=== PATIENT | female | born 1965 | race Hispanic/Latino ===

== ENCOUNTER 2019-03-14 07:30 | Inpatient (IN) | payer BC ==
[2019-03-14 08:07] LABS: Basophils # (Auto) 0.1 K/mm3 (0.0-0.1); Basophils % (Auto) 1.4 % (0.0-1.8); Eosinophils # (Auto) 0.1 K/mm3 (0.0-0.4); Eosinophils % (Auto) 2.1 % (0.0-4.3); Hematocrit 33.5 % (30.3-42.9); Lymphocytes # (Auto) 1.3 K/mm3 (1.2-5.4); Lymphocytes % (Auto) 21.1 % (13.4-35.0); Mean Corpuscular HGB Conc 33 % (30-34); Mean Corpuscular Volume 73 fl (79-97); Monocytes # (Auto) 0.4 K/mm3 (0.0-0.8); Monocytes % (Auto) 5.9 % (0.0-7.3); Platelet Count 182 K/mm3 (140-440); Red Blood Count 4.57 M/mm3 (3.65-5.03)
[2019-03-14 08:11] LABS: Red Cell Distribution Width 20.5 % (13.2-15.2)
[2019-03-14 08:15] LABS: INR 0.9 (0.87-1.13); Partial Thromboplastin Time 25.5 Sec. (24.2-36.6)
[2019-03-14 08:17] LABS: BUN/Creatinine Ratio 19; Blood Urea Nitrogen 13 mg/dL (7-17); Hemolysis Index 1
[2019-03-14] MEDS: NACL 0.9% 500 ML 500 ML IV SCH ×2 (08:23→11:15)
--- NOTE | 2019-03-14 10:41 | Short Stay Summary ---
Short Stay Documentation Date of service: 03/14/19 - History Principal diagnosis: Right staghorn Calculus Past Medical History: other (Right staghorn Calculus) Social history: no significant social history - Allergies and Medications Current Medications: Allergies No Known Allergies Allergy (Unverified 12/08/14 16:47) Home Medications Medication Instructions Recorded Confirmed Last Taken Type Ibuprofen [Motrin 800 MG tab] 800 mg PO Q8H PRN #30 tablet 02/02/16 03/14/19 03/08/19 Rx 800mg rifAMPin [Rifadin] 2 cap PO DAILY 03/14/19 03/14/19 03/13/19 History 2 tab Active Medications Sodium Chloride (Nacl 0.9% 500 Ml) 500 mls @ 50 mls/hr IV DIRECT WALT Last Admin: 03/14/19 08:23 Dose: 50 mls/hr Documented by: - Physical exam General appearance: no acute distress Integumentary: no rash, no growths HEENT: Atraumatic Lungs: Normal air movement Breasts: deferred Heart: Regular rate Gastrointestinal: normal Female Genitourinary: deferred Rectal Exam: deferred Extremities: Full ROM Neurological: Normal gait, Normal speech - Brief post op/procedure progress note Date of procedure: 03/14/19 Pre-op diagnosis: right staghorn calculus Post-op diagnosis: same Procedure: Ultrasound and fluoroscopic guided placement of right Nephro-ureteral stent Anesthesia: local Surgeon: LENIN ARVIZU Estimated blood loss: minimal Pathology: none Condition: stable - Disposition Condition at discharge: Good Disposition: DC/TX-02 [id number]-TRM GEN HOSP IP Short Stay Discharge Plan Activity: advance as tolerated Weight Bearing Status: Weight Bear as Tolerated Diet: regular Wound: keep clean and dry, per your surgeon's advice Follow up with: MUMTAZ ROCHA MD [Primary Care Provider] - 7 Days
[2019-03-14] MEDS ORDERED: SUBLIMAZE ONE (10:59)
[2019-03-14] MEDS ORDERED: VERSED ONE (10:59)
[2019-03-14] MEDS ORDERED: NACL 0.9% 500 ML IR ONE (11:00)
[2019-03-14] MEDS ORDERED: LEVAQUIN 500MG/100ML 500 MG/100 ML BAG IV ONE (11:00)
[2019-03-14] MEDS ORDERED: XYLOCAINE 2% INFILTRATI ONE (11:00)
--- NOTE | 2019-03-14 11:40 | Operative Report ---
Operative Report Operative Report: Exam: Ultrasound and fluoroscopic guided placement of right nephroureteral stent Clinical indication: Patient with a history of staghorn calculus involving the right kidney Date: 03/14/2019 Procedure: Following an explanation of the risks, benefits and alternatives; written informed consent was obtained. The patient was brought to the angiographic suite and placed in prone position on the examination table. Initial ultrasound and orthotopic images demonstrated staghorn calculus filling all calyces and the renal pelvis. The posterior middle calyx was chosen for access. Under ultrasound and fluoroscopic guidance, the posterior middle calyx was cannulated with a 15 cm 21-gauge needle. A 0.018 guidewire was manipulated past the calculus into the proximal ureter. The needle was exchanged for an Accustick transition dilator which was advanced into the proximal ureter. The 0.018 guidewire was exchanged for a 0.035 guidewire which was advanced to the urinary bladder. The transition dilator was removed. A 5 [place] 90 cm pigtail catheter was then advanced over the guidewire to position the pigtail within the renal pelvis. Guidewire was removed. Contrast was injected to document positioning within the bladder. The catheter was then coiled and securely fastened to the skin surface using 2-0 Ethilon suture and sterile dressings applied. The patient tolerated the procedure well. There were no immediate postprocedure complications. Conscious sedation was performed under the guidance of radiologic nursing. Continuous cardiopulmonary monitoring was utilized. Impression: Ultrasound and fluoroscopic guided placement of a right nephroureteral stent to provide access for laser lithotripsy.
[2019-03-14] MEDS ORDERED: NORCO 5/325 PO ONE (12:00)
[2019-03-14] MEDS ORDERED: NORCO 5/325 ONE (12:00)
[2019-03-14] MEDS ORDERED: MORPHINE IV ONE (13:00)
--- NOTE | 2019-03-14 13:32 | Cat Scan Report ---
PROCEDURE: CT ABDOMEN PELVIS WO CON TECHNIQUE: CT examination of the abdomen without IV contrast CT examination of the pelvis without IV contrast HISTORY: right staghorn calculi COMPARISONS: Lumbar spine radiographs 08/11/2018 FINDINGS: No acute lung base finding. Degenerative change in the regional skeleton. No acute fracture. Normal cardiac size. Slight coronary artery calcification posteriorly. A smoothly marginated hypodense left hepatic lobe lesion is nonspecific and statistically most likely reflects a cyst or hemangioma. Normal-appearing gallbladder, adrenals, pancreas, and spleen. Normal caliber abdominal aorta with mod erate calcified atherosclerotic plaque. Normal caliber IVC. Nonspecific, smoothly marginated, simple appearing, low density bilateral renal lesions are statistic ally most likely cysts. Otherwise normal-appearing left kidney and left ureter. No left hydronephrosi s. Moderate to severe right hydronephrotic renal collecting system again contains a large staghorn calcu alysa involving nearly all calyces and the right renal pelvis extending nearly to the right UPJ. No demarcus dence of right ureteral calculus or distention. Although the staghorn calculus is lobulated and diffi cult to measure, approximate transverse measurements are 3.9 x 4.8 cm. Approximate sagittal dimension on coronal images is 9.4 cm. Small fat-containing umbilical hernia. No inguinal hernia. No retroperitoneal adenopathy. No evidence of mesenteric mass. Normal-appearing stomach and duodenum. No small bowel distention in the abdomen and pelvis. No pelvic free fluid. Normal-appearing urinary bladder, uterus, and right adnexa. Normal-appearing re ctum and sigmoid colon. No gross ascites, free air, or colonic distention. Normal-appearing cecum and terminal ileum. Appendix not visualized. No pericecal inflammation. Nonspecific small smoothly marginated cyst in left adnexa may be a dominant ovarian follicle. It coul d be a small follicular cyst measuring 2.5 cm. IMPRESSION: Large right staghorn calculus as above described Slight coronary artery calcification Small fat-containing umbilical hernia 2.5 cm simple appearing cyst in left adnexa may be a dominant ovarian follicle or small follicular cy st This document is electronically signed by Miller Espinosa MD., March 14 2019 01:30:16 PM ET
[2019-03-14] MEDS ORDERED: NORCO 5/325 PO PRN (14:42)
[2019-03-14] MEDS ORDERED: TYLENOL PO PRN (14:42)
[2019-03-14] MEDS ORDERED: SODIUM CHLORIDE FLUSH SYRINGE 10 ML IV PRN (14:42)
[2019-03-14] MEDS ORDERED: ZOFRAN IV PRN (14:42)
[2019-03-14] MEDS ORDERED: DULCOLAX PR PRN (14:42)
--- NOTE | 2019-03-14 14:42 | History and Physical Report ---
History of Present Illness Date of examination: 03/14/19 Date of admission: 03/14/19 13:58 Past History Past Medical History: other (Right staghorn Calculus) Social history: no significant social history Medications and Allergies Allergies Allergy/AdvReac Type Severity Reaction Status Date / Time No Known Allergies Allergy Unverified 12/08/14 16:47 Home Medications Medication Instructions Recorded Confirmed Last Taken Type Ibuprofen [Motrin 800 MG tab] 800 mg PO Q8H PRN #30 tablet 02/02/16 03/14/19 03/08/19 Rx 800mg rifAMPin [Rifadin] 2 cap PO DAILY 03/14/19 03/14/19 03/13/19 History 2 tab Active Meds: Active Medications Sodium Chloride (Nacl 0.9% 500 Ml) 500 mls @ 50 mls/hr IV DIRECT WALT Last Admin: 03/14/19 11:15 Dose: 50 mls/hr Documented by: Exam - Constitutional Vitals: Temp Pulse Resp BP Pulse Ox 98.6 F 81 18 133/58 96 03/14/19 11:45 03/14/19 14:00 03/14/19 14:00 03/14/19 14:00 03/14/19 14:00 Results - Labs CBC & Chem 7: 03/14/19 07:45 03/14/19 07:45 Labs: Laboratory Last Values WBC 6.3 K/mm3 (4.5-11.0) 03/14/19 07:45 RBC 4.57 M/mm3 (3.65-5.03) 03/14/19 07:45 Hgb 11.0 gm/dl (10.1-14.3) 03/14/19 07:45 Hct 33.5 % (30.3-42.9) 03/14/19 07:45 MCV 73 fl (79-97) L 03/14/19 07:45 MCH 24 pg (28-32) L 03/14/19 07:45 MCHC 33 % (30-34) 03/14/19 07:45 RDW 20.5 % (13.2-15.2) H 03/14/19 07:45 Plt Count 182 K/mm3 (140-440) 03/14/19 07:45 Lymph % (Auto) 21.1 % (13.4-35.0) 03/14/19 07:45 [place] % (Auto) 5.9 % (0.0-7.3) 03/14/19 07:45 Eos % (Auto) 2.1 % (0.0-4.3) 03/14/19 07:45 Baso % (Auto) 1.4 % (0.0-1.8) 03/14/19 07:45 Lymph # 1.3 K/mm3 (1.2-5.4) 03/14/19 07:45 [place] # 0.4 K/mm3 (0.0-0.8) 03/14/19 07:45 Eos # 0.1 K/mm3 (0.0-0.4) 03/14/19 07:45 Baso # 0.1 K/mm3 (0.0-0.1) 03/14/19 07:45 Seg Neutrophils % 69.5 % (40.0-70.0) 03/14/19 07:45 Seg Neutrophils # 4.4 K/mm3 (1.8-7.7) 03/14/19 07:45 PT 12.7 Sec. (12.2-14.9) 03/14/19 07:45 INR 0.90 (0.87-1.13) 03/14/19 07:45 APTT 25.5 Sec. (24.2-36.6) 03/14/19 07:45 Sodium 138 mmol/L (137-145) 03/14/19 07:45 Potassium 4.1 mmol/L (3.6-5.0) 03/14/19 07:45 Chloride 104.0 mmol/L (98-107) 03/14/19 07:45 Carbon Dioxide 23 mmol/L (22-30) 03/14/19 07:45 15 mmol/L 03/14/19 07:45 BUN 13 mg/dL (7-17) 03/14/19 07:45 0.7 mg/dL (0.7-1.2) 03/14/19 07:45 Estimated GFR > 60 ml/min 03/14/19 07:45 19 % 03/14/19 07:45 Glucose 107 mg/dL (65-100) H 03/14/19 07:45 Calcium 9.0 mg/dL (8.4-10.2) 03/14/19 07:45
[2019-03-14] MEDS: DILAUDID IV PRN ×3 (15:12→22:21)
[2019-03-14 15:39] LABS: Alanine Aminotransferase 12 units/L (7-56); Albumin 3.7 g/dL (3.9-5); BUN/Creatinine Ratio 17; Blood Urea Nitrogen 12 mg/dL (7-17); Calcium 8.7 mg/dL (8.4-10.2); Hemolysis Index 2
[2019-03-14 15:45] LABS: Basophils % (Auto) 0.4 % (0.0-1.8); Eosinophils # (Auto) 0.1 K/mm3 (0.0-0.4); Hematocrit 33.2 % (30.3-42.9); Hemoglobin 10.7 gm/dl (10.1-14.3); Lymphocytes # (Auto) 0.9 K/mm3 (1.2-5.4); Lymphocytes % (Auto) 11.2 % (13.4-35.0); Mean Corpuscular HGB Conc 32 % (30-34); Mean Corpuscular Volume 74 fl (79-97); Monocytes # (Auto) 0.4 K/mm3 (0.0-0.8); Monocytes % (Auto) 4.4 % (0.0-7.3); Platelet Count 184 K/mm3 (140-440); Red Blood Count 4.51 M/mm3 (3.65-5.03)
[2019-03-14 15:46] LABS: Red Cell Distribution Width 20.7 % (13.2-15.2)
[2019-03-14] MEDS: PEPCID PO SCH ×2 (16:19→22:05)
[2019-03-14] MEDS ORDERED: AMBIEN PO PRN (22:00)
[2019-03-14] MEDS: ROCEPHIN/NS 2 GM/100 ML 2 GM/100 ML BAG IV SCH (22:05)
[2019-03-15] MEDS: DILAUDID IV PRN ×5 (04:07→23:57)
[2019-03-15] MEDS: NACL 0.9% 1000 ML 1,000 ML IV SCH (04:08)
--- NOTE | 2019-03-15 07:05 | Event Note ---
Date: 03/14/19 See H/p in reports Staghorm calculus Rt Nephroureteral stent placement Pain control Direct admit
--- NOTE | 2019-03-15 07:28 | History and Physical Report ---
CHIEF COMPLAINT: Right flank pain. HISTORY OF PRESENT ILLNESS: A 53-year-old female with no significant past medical history, admitted for right nephroureteral stent placement and followup for treatment of staghorn calculus. The patient has a large staghorn calculus. The patient had a fluoroscopic-guided placement of right nephroureteral stent and post stent pain control. Also, Urology consult initiated. The patient may be going for a lithotripsy. No fever or chills. PAST MEDICAL HISTORY: Renal calculi. PAST SURGICAL HISTORY: Appendectomy and tubal ligation. FAMILY HISTORY: Hypertension. SOCIAL HISTORY: Does not smoke. No alcohol, no recreational drugs. REVIEW OF SYSTEMS: Other than right flank pain, review of systems is negative. No fever or chills. PHYSICAL EXAMINATION: GENERAL: On examination, middle-aged female lying in bed comfortably. VITAL SIGNS: Blood pressure is 133/58, temperature is 98.3, pulse is 81, respirations 18. HEENT: Unremarkable. Pupils equal and reactive. NECK: Supple, no lymphadenopathy, no thyromegaly. LUNGS: Clear to auscultation and percussion. Good air entry. CARDIOVASCULAR: S1, S2 heard. No gallop, no murmur, no rub. Apical impulse in left fifth intercostal space and midclavicular line. ABDOMEN: Soft and benign. No hepatosplenomegaly, no guarding, no rigidity. Hernial orifices are normal. EXTREMITIES: Good pedal pulses. No pedal edema. CENTRAL NERVOUS SYSTEM: Alert and oriented x 4, nonfocal exam. LABORATORY DATA: CBC is normal with a low MCV of 73. Electrolytes are normal. Glucose is slightly high at 107. Urinalysis pending. ASSESSMENT AND PLAN: 1. Right staghorn calculus. Urology consult requested. The patient may be getting a lithotripsy. We will defer to Urology. 2. Status post nephroureteral stent placement. Pain control. IV fluids. 3. Deep venous thrombosis prophylaxis, Lovenox 40 mg subcutaneous daily. In summary, the patient has a staghorn calculus etiology informed. JOB# [id number] VSMariah/LUZ LUCIO
--- NOTE | 2019-03-15 08:44 | Progress Note ---
Assessment and Plan Patient status post right nephroureteral stent placement. Scheduled for surgery this afternoon. Management per urology. Subjective Date of service: 03/15/19 Principal diagnosis: Right staghorn Calculus Interval history: Patient doing well all replacement of right upper ureteral stent for access for laser lithotripsy. Her pain is greatly decreased today. Awaiting surgery. Objective - Constitutional Vitals: Vital Signs - 12hr 03/14/19 03/15/19 22:22 05:20 Temperature 98.3 F 98.6 F Pulse Rate 93 H 87 Respiratory 18 16 Rate Blood Pressure 133/72 144/83 O2 Sat by Pulse 92 98 Oximetry General appearance: Present: no acute distress - EENT Eyes: EOM intact ENT: hearing intact - Neck Neck: supple - Respiratory Respiratory effort: normal - Breasts Breasts: deferred Extremities: no ischemia - Gastrointestinal General gastrointestinal: Present: deferred - Genitourinary Female genitourinary: deferred - Psychiatric Psychiatric: appropriate mood/affect, cooperative - Labs CBC & Chem 7: 03/14/19 14:58 03/14/19 14:58 Labs: Abnormal lab results 03/14/19 03/14/19 Range/Units 14:58 14:58 MCV 74 L (79-97) fl MCH 24 L (28-32) pg RDW 20.7 H (13.2-15.2) % Lymph % (Auto) 11.2 L (13.4-35.0) % Lymph # 0.9 L (1.2-5.4) K/mm3 Seg Neutrophils % 83.0 H (40.0-70.0) % Glucose 125 H (65-100) mg/dL Albumin 3.7 L (3.9-5) g/dL Medications & Allergies - Medications Allergies/Adverse Reactions: Allergies No Known Allergies Allergy (Unverified 12/08/14 16:47) Home Medications: Home Medications Medication Instructions Recorded Confirmed Last Taken Type Ibuprofen [Motrin 800 MG tab] 800 mg PO Q8H PRN #30 tablet 02/02/16 03/14/19 03/08/19 Rx 800mg rifAMPin [Rifadin] 2 cap PO DAILY 03/14/19 03/14/19 03/13/19 History 2 tab Active Medications: Generic Name Dose Route Start Last Admin Trade Name Freq PRN Reason Stop Dose Admin Acetaminophen 650 mg 03/14/19 14:42 Tylenol PO Q4H PRN Pain MILD(1-3)/Fever >100.5/REAGAN Acetaminophen/Hydrocodone Bitart 2 each 03/14/19 14:42 [place] 5/325 PO Q6H PRN Pain, Moderate (4-6) Bisacodyl 10 mg 03/14/19 14:42 Dulcolax [place] QDAY PRN Constipation unrelieved by MOM Famotidine 20 mg 03/14/19 15:00 03/14/19 22:05 Pepcid PO 20 mg BID WALT Administration Hydromorphone HCl 0.5 mg 03/14/19 14:42 03/15/19 07:52 Dilaudid IV 0.5 mg Q3H PRN Administration Pain , Severe (7-10) Sodium Chloride 1,000 mls @ 100 mls/hr 03/14/19 15:00 03/15/19 04:08 Nacl 0.9% 1000 Ml IV 100 mls/hr DIRECT WALT Administration Ceftriaxone Sodium 2 gm in 100 mls @ 200 mls/hr 03/14/19 21:00 03/14/19 22:05 Rocephin/Ns 2 Gm/100 Ml IV 200 mls/hr Q24HR WALT Administration Protocol Ondansetron HCl 4 mg 03/14/19 14:42 03/14/19 18:58 Zofran IV 4 mg Q8H PRN Administration Nausea And Vomiting Oxycodone/Acetaminophen 1 tab 03/14/19 14:42 Percocet 5/325 PO Q6H PRN Pain, Moderate (4-6) Sodium Chloride 10 ml 03/14/19 22:00 Sodium Chloride Flush Syringe 10 Ml IV BID WALT Sodium Chloride 10 ml 03/14/19 14:42 Sodium Chloride Flush Syringe 10 Ml IV PRN PRN LINE FLUSH Zolpidem Tartrate 5 mg 03/14/19 22:00 03/14/19 22:23 Ambien PO 5 mg QHS PRN Administration Insomnia
[2019-03-15] MEDS: ROCEPHIN/NS 2 GM/100 ML 2 GM/100 ML BAG IV SCH (10:08)
[2019-03-15] MEDS: PEPCID PO SCH ×2 (10:10→22:35)
[2019-03-15] MEDS: SODIUM CHLORIDE FLUSH SYRINGE 10 ML IV SCH ×3 (10:10→22:35)
[2019-03-15] MEDS ORDERED: LACTATED RINGERS 1,000 ML IV SCH (12:00)
[2019-03-15] MEDS ORDERED: VERSED IV NR (12:00)
--- NOTE | 2019-03-15 12:58 | Anesthesia Consultation ---
Anesthesia Consult and Med Hx Date of service: 03/15/19 - Airway Anesthetic Teeth Evaluation: Poor, Chipped ROM Head & Neck: Adequate Mental/Hyoid Distance: Adequate Mallampati Class: Class II Intubation Access Assessment: Good - Pulmonary Exam CTA: Yes - Cardiac Exam Cardiac Exam: RRR - Pre-Operative Health Status ASA Pre-Surgery Classification: ASA2 Proposed Anesthetic Plan: General - Pulmonary Hx Smoking: Yes (half pack a day ) Hx Asthma: No COPD: No Hx Pneumonia: No - Cardiovascular System Hx Hypertension: No - Central Nervous System Hx Psychiatric Problems: No - Gastrointestinal Hx Gastroesophageal Reflux Disease: No - Endocrine Hx End Stage Renal Disease: No - Other Systems Hx Alcohol Use: Yes (1-2 beers daily as per patient) Hx Cancer: No - Additional Comments Anesthesia Medical History Comments: 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 Smoker 1/2 pack daily , poor dentition for GA
--- NOTE | 2019-03-15 12:58 | Anesthesia Day of Surgery ---
Anesthesia Day of Surgery - Day of Surgery Patient Examined: Yes Patient H&P Reviewed: Yes Patient is NPO: Yes
[2019-03-15] MEDS ORDERED: DILAUDID IV PRN (12:59)
[2019-03-15] MEDS ORDERED: ZOFRAN IV PRN (12:59)
[2019-03-15 13:14] LABS: Basophils # (Auto) 0.1 K/mm3 (0.0-0.1); Basophils % (Auto) 0.8 % (0.0-1.8); Eosinophils % (Auto) 0.5 % (0.0-4.3); Hematocrit 33.2 % (30.3-42.9); Hemoglobin 10.6 gm/dl (10.1-14.3); Lymphocytes # (Auto) 0.8 K/mm3 (1.2-5.4); Lymphocytes % (Auto) 9.8 % (13.4-35.0); Mean Corpuscular HGB Conc 32 % (30-34); Mean Corpuscular Volume 74 fl (79-97); Monocytes # (Auto) 0.5 K/mm3 (0.0-0.8); Monocytes % (Auto) 6.1 % (0.0-7.3); Platelet Count 174 K/mm3 (140-440); Red Blood Count 4.49 M/mm3 (3.65-5.03)
[2019-03-15 13:20] LABS: Red Cell Distribution Width 20.6 % (13.2-15.2)
[2019-03-15 14:01] LABS: BUN/Creatinine Ratio 12; Blood Urea Nitrogen 7 mg/dL (7-17); Calcium 8.5 mg/dL (8.4-10.2); Hemolysis Index 8
[2019-03-15] MEDS ORDERED: NACL 0.9% IR ONE (15:27)
--- NOTE | 2019-03-15 15:30 | Progress Note ---
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 Patient has large staghorn calculus and going for lithotripsy today. Patient status post right nephroureteral stent placement. Scheduled for surgery this afternoon. Management per urology. Right staghorn calculus: Urology is following, for lithotripsy today. Status post right nephroureteral stent placement. History Interval history: Patient was seen and examined. Follow-up on current diagnosis of Kidney stones. Overnight uneventful. Patient denies any chest pain, shortness breath, nausea/vomiting or severe headaches. Imaging, nursing note, chart, labs and old chart reviewed. Discussed with patient. Hospitalist Physical - Physical exam Narrative exam: Gen: WDWN, NAD, Awake, Alert, Orientated HEENT: NCAT, EOMI, PERRL, OP Clear Neck: supple, no adenopathy, no thyromegaly, no JVD CVS/Heart: RRR, normal S1S2, pulses present bilaterally Chest/Lungs: CTA B, Symmetrical chest expansion, good air entry bilaterally GI/Abdomen: soft, NTND, good bowel sounds, no guarding or rebound /Bladder: no suprapubic tenderness, + right CVA, no paraspinal tenderness Extermity/Skin: no c/c/e, no obvious rash MSK: FROM x 4 Neuro: CN 2-12 grossly intact, no new focal deficits Psych: calm - Constitutional Vitals: Temp Pulse Resp BP Pulse Ox 98.5 F 79 22 143/80 95 03/15/19 12:50 03/15/19 12:50 03/15/19 12:50 03/15/19 12:50 03/15/19 12:50 General appearance: Present: no acute distress Results - Labs CBC & Chem 7: 03/15/19 08:49 03/15/19 08:49 Labs: Laboratory Last Values WBC 7.8 K/mm3 (4.5-11.0) 03/15/19 08:49 RBC 4.49 M/mm3 (3.65-5.03) 03/15/19 08:49 Hgb 10.6 gm/dl (10.1-14.3) 03/15/19 08:49 Hct 33.2 % (30.3-42.9) 03/15/19 08:49 MCV 74 fl (79-97) L 03/15/19 08:49 MCH 24 pg (28-32) L 03/15/19 08:49 MCHC 32 % (30-34) 03/15/19 08:49 RDW 20.6 % (13.2-15.2) H 03/15/19 08:49 Plt Count 174 K/mm3 (140-440) 03/15/19 08:49 Lymph % (Auto) 9.8 % (13.4-35.0) L 03/15/19 08:49 [place] % (Auto) 6.1 % (0.0-7.3) 03/15/19 08:49 Eos % (Auto) 0.5 % (0.0-4.3) 03/15/19 08:49 Baso % (Auto) 0.8 % (0.0-1.8) 03/15/19 08:49 Lymph # 0.8 K/mm3 (1.2-5.4) L 03/15/19 08:49 [place] # 0.5 K/mm3 (0.0-0.8) 03/15/19 08:49 Eos # 0.0 K/mm3 (0.0-0.4) 03/15/19 08:49 Baso # 0.1 K/mm3 (0.0-0.1) 03/15/19 08:49 Seg Neutrophils % 82.8 % (40.0-70.0) H 03/15/19 08:49 Seg Neutrophils # 6.5 K/mm3 (1.8-7.7) 03/15/19 08:49 PT 12.7 Sec. (12.2-14.9) 03/14/19 07:45 INR 0.90 (0.87-1.13) 03/14/19 07:45 APTT 25.5 Sec. (24.2-36.6) 03/14/19 07:45 Sodium 137 mmol/L (137-145) 03/15/19 08:49 Potassium 4.0 mmol/L (3.6-5.0) 03/15/19 08:49 Chloride 101.4 mmol/L (98-107) 03/15/19 08:49 Carbon Dioxide 19 mmol/L (22-30) L 03/15/19 08:49 21 mmol/L 03/15/19 08:49 BUN 7 mg/dL (7-17) 03/15/19 08:49 0.6 mg/dL (0.7-1.2) L 03/15/19 08:49 Estimated GFR > 60 ml/min 03/15/19 08:49 12 % 03/15/19 08:49 Glucose 81 mg/dL (65-100) 03/15/19 08:49 Calcium 8.5 mg/dL (8.4-10.2) 03/15/19 08:49 < 0.20 mg/dL (0.1-1.2) 03/14/19 14:58 AST 6 units/L (5-40) 03/14/19 14:58 ALT 12 units/L (7-56) 03/14/19 14:58 53 units/L (35-129) 03/14/19 14:58 6.5 g/dL (6.3-8.2) 03/14/19 14:58 3.7 g/dL (3.9-5) L 03/14/19 14:58 1.3 % 03/14/19 14:58 Active Medications - Current Medications Current Medications: Generic Name Dose Route Start Last Admin Trade Name Freq PRN Reason Stop Dose Admin Acetaminophen 650 mg 03/14/19 14:42 Tylenol PO Q4H PRN Pain MILD(1-3)/Fever >100.5/REAGAN Acetaminophen/Hydrocodone Bitart 2 each 03/14/19 14:42 [place] 5/325 PO Q6H PRN Pain, Moderate (4-6) Bisacodyl 10 mg 03/14/19 14:42 Dulcolax [place] QDAY PRN Constipation unrelieved by MOM Famotidine 20 mg 03/14/19 15:00 03/15/19 10:10 Pepcid PO 20 mg BID WALT Administration Hydromorphone HCl 0.5 mg 03/14/19 14:42 03/15/19 11:26 Dilaudid IV 0.5 mg Q3H PRN Administration Pain , Severe (7-10) Hydromorphone HCl 0.5 mg 03/15/19 12:59 Dilaudid IV Q10MIN PRN Pain , Severe (7-10) Sodium Chloride 1,000 mls @ 100 mls/hr 03/14/19 15:00 03/15/19 04:08 Nacl 0.9% 1000 Ml IV 100 mls/hr DIRECT WALT Administration Ceftriaxone Sodium 2 gm in 100 mls @ 200 mls/hr 03/14/19 21:00 03/15/19 10:08 Rocephin/Ns 2 Gm/100 Ml IV 200 mls/hr Q24HR WALT Administration Protocol Lactated Ringer's 1,000 mls @ 75 mls/hr 03/15/19 12:00 03/15/19 13:20 Lactated Ringers IV 75 mls/hr DIRECT WALT Administration Midazolam HCl 2 mg 03/15/19 12:00 03/15/19 13:31 Versed IV 03/15/19 23:59 2 mg PREOP NR Administration Ondansetron HCl 4 mg 03/14/19 14:42 03/14/19 18:58 Zofran IV 4 mg Q8H PRN Administration Nausea And Vomiting Ondansetron HCl 4 mg 03/15/19 12:59 Zofran IV ONCE PRN Nausea And Vomiting Oxycodone/Acetaminophen 1 tab 03/14/19 14:42 Percocet 5/325 PO Q6H PRN Pain, Moderate (4-6) Rifampin 600 mg 03/15/19 12:00 Rifadin PO DAILY WALT Sodium Chloride 10 ml 03/14/19 22:00 03/15/19 10:11 Sodium Chloride Flush Syringe 10 Ml IV 10 ml BID WALT Administration Sodium Chloride 10 ml 03/14/19 14:42 Sodium Chloride Flush Syringe 10 Ml IV PRN PRN LINE FLUSH Zolpidem Tartrate 5 mg 03/14/19 22:00 03/14/19 22:23 Ambien PO 5 mg QHS PRN Administration Insomnia
[2019-03-15] MEDS ORDERED: MINERAL OIL TOPICAL LIGHT TP ONE (15:33)
[2019-03-15] MEDS ORDERED: OMNIPAQUE (300 MG) IR ONE (15:38)
--- NOTE | 2019-03-15 16:47 | Post Operative Note ---
Date of procedure: 03/15/19 Pre-op diagnosis: staghorn stone - right Post-op diagnosis: same Findings: rt percutaneous nephrolithotom (stent, perc tube, safety wire) Anesthesia: GETA Surgeon: PATRICK MORA Estimated blood loss: 50-100ml Condition: stable Disposition: PACU (pt will need staged procedure)
[2019-03-15] MEDS ORDERED: NACL 0.9% 500 ML 500 ML IV ONE (16:50)
[2019-03-15 17:37] LABS: Basophils % (Auto) 0.6 % (0.0-1.8); Eosinophils % (Auto) 0.5 % (0.0-4.3); Hemoglobin 10.2 gm/dl (10.1-14.3); Lymphocytes # (Auto) 0.6 K/mm3 (1.2-5.4); Lymphocytes % (Auto) 8.6 % (13.4-35.0); Mean Corpuscular HGB Conc 33 % (30-34); Mean Corpuscular Volume 73 fl (79-97); Monocytes # (Auto) 0.2 K/mm3 (0.0-0.8); Monocytes % (Auto) 2.9 % (0.0-7.3); Platelet Count 163 K/mm3 (140-440); Red Blood Count 4.22 M/mm3 (3.65-5.03)
[2019-03-15 17:39] LABS: Red Cell Distribution Width 20.7 % (13.2-15.2)
[2019-03-15 17:46] LABS: BUN/Creatinine Ratio 9; Blood Urea Nitrogen 7 mg/dL (7-17); Calcium 8.3 mg/dL (8.4-10.2); Hemolysis Index 2
[2019-03-15] MEDS ORDERED: PROVENTIL IH ONE ×2 (17:50→18:00)
[2019-03-15] MEDS ORDERED: NACL 0.9% NEBU ONE (17:51)
[2019-03-15] MEDS: RIFADIN PO SCH ×2 (18:00→23:16)
[2019-03-16] MEDS: DILAUDID IV PRN ×3 (05:02→22:43)
[2019-03-16] MEDS: NACL 0.9% 1000 ML 1,000 ML IV SCH (05:02)
[2019-03-16 05:21] LABS: Basophils % (Auto) 0.3 % (0.0-1.8); Eosinophils % (Auto) 0.4 % (0.0-4.3); Hematocrit 29.8 % (30.3-42.9); Hemoglobin 9.7 gm/dl (10.1-14.3); Lymphocytes # (Auto) 0.5 K/mm3 (1.2-5.4); Lymphocytes % (Auto) 5.4 % (13.4-35.0); Mean Corpuscular HGB Conc 33 % (30-34); Mean Corpuscular Volume 73 fl (79-97); Monocytes # (Auto) 0.5 K/mm3 (0.0-0.8); Monocytes % (Auto) 5.4 % (0.0-7.3); Platelet Count 156 K/mm3 (140-440); Red Blood Count 4.06 M/mm3 (3.65-5.03); Red Cell Distribution Width 20.1 % (13.2-15.2)
[2019-03-16 05:47] LABS: BUN/Creatinine Ratio 9; Blood Urea Nitrogen 6 mg/dL (7-17); Calcium 8.5 mg/dL (8.4-10.2); Hemolysis Index 3
[2019-03-16] MEDS ORDERED: PROVENTIL IH PRN (09:10)
--- NOTE | 2019-03-16 09:16 | Progress Note ---
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 Patient has large staghorn calculus and going for lithotripsy today. Patient status post right nephroureteral stent placement. Lithotripsy done, Management per urology. It appears she will need staging procedure. Patient mentioned that Nephrectomy maybe an option per her conversation with Dr. Gandhi over the phone. Date of procedure: 03/15/19 Pre-op diagnosis: staghorn stone - right Post-op diagnosis: same Findings: rt percutaneous nephrolithotom (stent, perc tube, safety wire) Anesthesia: GETA Surgeon: PATRICK GANDHI Estimated blood loss: 50-100ml Right staghorn calculus: Urology is following, for lithotripsy 02/12/19. Linda in place Status post right nephroureteral stent placement. Acute blood loss anemia: HCT unchanged but hgb dropped, so steady Suspected Acute hypoxic respiratory failure: 94% on 3liters, 91% RA at rest, stopped NS, restart diet, add Incentive spirometry and nebulizer treatment DVT prophylaxis SCD only due to drop in Hgb Disposition: continue inpatient care, Anticipate Discharge once Cleared by Urology History Interval history: Patient was seen and examined. Follow-up on current diagnosis of Right Nephrol ithiasis. Overnight uneventful. Patient denies any chest pain, shortness breath, nausea/vomiting or severe headaches. Imaging, nursing note, chart, labs and old chart reviewed. Discussed with patient. Hospitalist Physical - Physical exam Narrative exam: Gen: WDWN, NAD, Awake, Alert, Orientated HEENT: NCAT, EOMI, PERRL, OP Clear Neck: supple, no adenopathy, no thyromegaly, no JVD CVS/Heart: RRR, normal S1S2, pulses present bilaterally Chest/Lungs: CTA B, Symmetrical chest expansion, good air entry bilaterally GI/Abdomen: soft, NTND, good bowel sounds, no guarding or rebound /Bladder: no suprapubic tenderness, + right CVA, no paraspinal tenderness Extermity/Skin: no c/c/e, no obvious rash MSK: FROM x 4 Neuro: CN 2-12 grossly intact, no new focal deficits Psych: calm - Constitutional Vitals: Temp Pulse Resp BP Pulse Ox 98.7 F 84 18 142/83 96 03/16/19 04:57 03/16/19 04:57 03/16/19 04:57 03/16/19 04:57 03/16/19 04:57 General appearance: Present: no acute distress Results - Labs CBC & Chem 7: 03/16/19 04:39 03/16/19 04:39 Labs: Laboratory Last Values WBC 8.7 K/mm3 (4.5-11.0) 03/16/19 04:39 RBC 4.06 M/mm3 (3.65-5.03) 03/16/19 04:39 Hgb 9.7 gm/dl (10.1-14.3) L 03/16/19 04:39 Hct 29.8 % (30.3-42.9) L 03/16/19 04:39 MCV 73 fl (79-97) L 03/16/19 04:39 MCH 24 pg (28-32) L 03/16/19 04:39 MCHC 33 % (30-34) 03/16/19 04:39 RDW 20.1 % (13.2-15.2) H 03/16/19 04:39 Plt Count 156 K/mm3 (140-440) 03/16/19 04:39 Lymph % (Auto) 5.4 % (13.4-35.0) L 03/16/19 04:39 [place] % (Auto) 5.4 % (0.0-7.3) 03/16/19 04:39 Eos % (Auto) 0.4 % (0.0-4.3) 03/16/19 04:39 Baso % (Auto) 0.3 % (0.0-1.8) 03/16/19 04:39 Lymph # 0.5 K/mm3 (1.2-5.4) L 03/16/19 04:39 [place] # 0.5 K/mm3 (0.0-0.8) 03/16/19 04:39 Eos # 0.0 K/mm3 (0.0-0.4) 03/16/19 04:39 Baso # 0.0 K/mm3 (0.0-0.1) 03/16/19 04:39 Seg Neutrophils % 88.5 % (40.0-70.0) H 03/16/19 04:39 Seg Neutrophils # 7.7 K/mm3 (1.8-7.7) 03/16/19 04:39 PT 12.7 Sec. (12.2-14.9) 03/14/19 07:45 INR 0.90 (0.87-1.13) 03/14/19 07:45 APTT 25.5 Sec. (24.2-36.6) 03/14/19 07:45 Sodium 137 mmol/L (137-145) 03/16/19 04:39 Potassium 3.9 mmol/L (3.6-5.0) 03/16/19 04:39 Chloride 104.8 mmol/L (98-107) 03/16/19 04:39 Carbon Dioxide 20 mmol/L (22-30) L 03/16/19 04:39 16 mmol/L 03/16/19 04:39 BUN 6 mg/dL (7-17) L 03/16/19 04:39 0.7 mg/dL (0.7-1.2) 03/16/19 04:39 Estimated GFR > 60 ml/min 03/16/19 04:39 9 % 03/16/19 04:39 Glucose 166 mg/dL (65-100) H 03/16/19 04:39 Calcium 8.5 mg/dL (8.4-10.2) 03/16/19 04:39 < 0.20 mg/dL (0.1-1.2) 03/14/19 14:58 AST 6 units/L (5-40) 03/14/19 14:58 ALT 12 units/L (7-56) 03/14/19 14:58 53 units/L (35-129) 03/14/19 14:58 6.5 g/dL (6.3-8.2) 03/14/19 14:58 3.7 g/dL (3.9-5) L 03/14/19 14:58 1.3 % 03/14/19 14:58 Blood Type A NEGATIVE 03/15/19 17:25 Antibody Screen TNR 03/15/19 17:25 DARI Antibody Screen Negative 03/15/19 17:25 Crossmatch See Detail 03/15/19 17:25 Active Medications - Current Medications Current Medications: Generic Name Dose Route Start Last Admin Trade Name Freq PRN Reason Stop Dose Admin Acetaminophen 650 mg 03/14/19 14:42 Tylenol PO Q4H PRN Pain MILD(1-3)/Fever >100.5/REAGAN Acetaminophen/Hydrocodone Bitart 2 each 03/14/19 14:42 03/16/19 03:37 [place] 5/325 PO 2 each Q6H PRN Administration Pain, Moderate (4-6) Albuterol 2.5 mg 03/16/19 09:10 Proventil IH Q4HRT PRN Shortness Of Breath Albuterol/Ipratropium 1 ampul 03/16/19 14:00 Duoneb *Not For Prn Use* IH TIDRT WALT Bisacodyl 10 mg 03/14/19 14:42 Dulcolax [place] QDAY PRN Constipation unrelieved by MOM Famotidine 20 mg 03/14/19 15:00 03/15/19 22:35 Pepcid PO 20 mg BID WALT Administration Hydromorphone HCl 0.5 mg 03/14/19 14:42 03/16/19 05:02 Dilaudid IV 0.5 mg Q3H PRN Administration Pain , Severe (7-10) Ceftriaxone Sodium 2 gm in 100 mls @ 200 mls/hr 03/14/19 21:00 03/15/19 10:08 Rocephin/Ns 2 Gm/100 Ml IV 200 mls/hr Q24HR WALT Administration Protocol Ondansetron HCl 4 mg 03/14/19 14:42 03/14/19 18:58 Zofran IV 4 mg Q8H PRN Administration Nausea And Vomiting Oxycodone/Acetaminophen 1 tab 03/14/19 14:42 Percocet 5/325 PO Q6H PRN Pain, Moderate (4-6) Rifampin 600 mg 03/15/19 12:00 03/15/19 23:16 Rifadin PO 600 mg DAILY WALT Administration Sodium Chloride 10 ml 03/14/19 22:00 03/15/19 22:35 Sodium Chloride Flush Syringe 10 Ml IV 10 ml BID WALT Administration Sodium Chloride 10 ml 03/14/19 14:42 Sodium Chloride Flush Syringe 10 Ml IV PRN PRN LINE FLUSH Zolpidem Tartrate 5 mg 03/14/19 22:00 03/14/19 22:23 Ambien PO 5 mg QHS PRN Administration Insomnia Nutrition/Malnutrition Assess - Dietary Evaluation Nutrition/Malnutrition Findings: Nutrition Notes Start: 03/15/19 16:39 Freq: Status: Active Protocol: Document 03/15/19 16:39 RM (Rec: 03/15/19 16:39 RM [id number]) Nutrition Notes Need for Assessment generated from: undercover agent Initial or Follow up Brief Note Subjective/Other Information Screened for skin risk. Sriram 20 points. Nutrition Intervention Revisit per MD consult or patient Sign Off request:
[2019-03-16] MEDS: ROCEPHIN/NS 2 GM/100 ML 2 GM/100 ML BAG IV SCH (10:20)
[2019-03-16] MEDS: PEPCID PO SCH ×2 (10:40→21:09)
[2019-03-16] MEDS: SODIUM CHLORIDE FLUSH SYRINGE 10 ML IV SCH ×2 (11:21→21:09)
[2019-03-16] MEDS: RIFADIN PO SCH (11:40)
--- NOTE | 2019-03-16 12:34 | Progress Note ---
Assessment and Plan tubes draining well wire removed keep NT in place urethral [place] out Subjective Date of service: 03/16/19 Principal diagnosis: Right staghorn Calculus Objective - Constitutional Vitals: Vital Signs - 12hr 03/16/19 03/16/19 02:07 04:57 Temperature 99.4 F 98.7 F Pulse Rate 91 H 84 Respiratory 17 18 Rate Blood Pressure 124/56 142/83 O2 Sat by Pulse 96 96 Oximetry General appearance: Present: no acute distress - Respiratory Respiratory effort: normal Extremities: no ischemia - Gastrointestinal General gastrointestinal: Present: soft, tender - Labs CBC & Chem 7: 03/16/19 04:39 03/16/19 04:39 Labs: Abnormal lab results 03/15/19 03/15/19 03/15/19 Range/Units 08:49 08:49 17:25 Hgb (10.1-14.3) gm/dl Hct (30.3-42.9) % MCV 74 L (79-97) fl MCH 24 L (28-32) pg RDW 20.6 H (13.2-15.2) % Lymph % (Auto) 9.8 L (13.4-35.0) % Lymph # 0.8 L (1.2-5.4) K/mm3 Seg Neutrophils % 82.8 H (40.0-70.0) % Carbon Dioxide 19 L (22-30) mmol/L BUN (7-17) mg/dL Creatinine 0.6 L (0.7-1.2) mg/dL Glucose (65-100) mg/dL Calcium (8.4-10.2) mg/dL Crossmatch See Detail 03/15/19 03/15/19 03/16/19 Range/Units 17:25 17:25 04:39 Hgb 9.7 L (10.1-14.3) gm/dl Hct 29.8 L (30.3-42.9) % MCV 73 L 73 L (79-97) fl MCH 24 L 24 L (28-32) pg RDW 20.7 H 20.1 H (13.2-15.2) % Lymph % (Auto) 8.6 L 5.4 L (13.4-35.0) % Lymph # 0.6 L 0.5 L (1.2-5.4) K/mm3 Seg Neutrophils % 87.4 H 88.5 H (40.0-70.0) % Carbon Dioxide (22-30) mmol/L BUN (7-17) mg/dL Creatinine (0.7-1.2) mg/dL Glucose 141 H (65-100) mg/dL Calcium 8.3 L (8.4-10.2) mg/dL Crossmatch 03/16/19 Range/Units 04:39 Hgb (10.1-14.3) gm/dl Hct (30.3-42.9) % MCV (79-97) fl MCH (28-32) pg RDW (13.2-15.2) % Lymph % (Auto) (13.4-35.0) % Lymph # (1.2-5.4) K/mm3 Seg Neutrophils % (40.0-70.0) % Carbon Dioxide 20 L (22-30) mmol/L BUN 6 L (7-17) mg/dL Creatinine (0.7-1.2) mg/dL Glucose 166 H (65-100) mg/dL Calcium (8.4-10.2) mg/dL Crossmatch Medications & Allergies - Medications Allergies/Adverse Reactions: Allergies No Known Allergies Allergy (Unverified 12/08/14 16:47) Home Medications: Home Medications Medication Instructions Recorded Confirmed Last Taken Type Ibuprofen [Motrin 800 MG tab] 800 mg PO Q8H PRN #30 tablet 02/02/16 03/14/19 03/08/19 Rx 800mg rifAMPin [Rifadin] 2 cap PO DAILY 03/14/19 03/14/19 03/13/19 History 2 tab Active Medications: Generic Name Dose Route Start Last Admin Trade Name Freq PRN Reason Stop Dose Admin Acetaminophen 650 mg 03/14/19 14:42 Tylenol PO Q4H PRN Pain MILD(1-3)/Fever >100.5/REAGAN Acetaminophen/Hydrocodone Bitart 2 each 03/14/19 14:42 03/16/19 03:37 [place] 5/325 PO 2 each Q6H PRN Administration Pain, Moderate (4-6) Albuterol 2.5 mg 03/16/19 09:10 Proventil IH Q4HRT PRN Shortness Of Breath Albuterol/Ipratropium 1 ampul 03/16/19 14:00 Duoneb *Not For Prn Use* IH TIDRT WALT Bisacodyl 10 mg 03/14/19 14:42 Dulcolax [place] QDAY PRN Constipation unrelieved by MOM Famotidine 20 mg 03/14/19 15:00 03/16/19 10:40 Pepcid PO 20 mg BID WALT Administration Hydromorphone HCl 0.5 mg 03/14/19 14:42 03/16/19 11:20 Dilaudid IV 0.5 mg Q3H PRN Administration Pain , Severe (7-10) Ceftriaxone Sodium 2 gm in 100 mls @ 200 mls/hr 03/14/19 21:00 03/16/19 10:20 Rocephin/Ns 2 Gm/100 Ml IV 200 mls/hr Q24HR WALT Administration Protocol Ondansetron HCl 4 mg 03/14/19 14:42 03/14/19 18:58 Zofran IV 4 mg Q8H PRN Administration Nausea And Vomiting Oxycodone/Acetaminophen 1 tab 03/14/19 14:42 Percocet 5/325 PO Q6H PRN Pain, Moderate (4-6) Rifampin 600 mg 03/15/19 12:00 03/16/19 11:40 Rifadin PO 600 mg DAILY WALT Administration Sodium Chloride 10 ml 03/14/19 22:00 03/16/19 11:21 Sodium Chloride Flush Syringe 10 Ml IV 10 ml BID WALT Administration Sodium Chloride 10 ml 03/14/19 14:42 Sodium Chloride Flush Syringe 10 Ml IV PRN PRN LINE FLUSH Zolpidem Tartrate 5 mg 03/14/19 22:00 03/14/19 22:23 Ambien PO 5 mg QHS PRN Administration Insomnia
[2019-03-16] MEDS: PERCOCET 5/325 PO PRN (12:53)
[2019-03-16] MEDS: DUONEB *Not for PRN Use IH SCH ×2 (15:13→19:47)
[2019-03-17 06:08] LABS: Hematocrit 31.3 % (30.3-42.9); Hemoglobin 10.3 gm/dl (10.1-14.3); Mean Corpuscular HGB Conc 33 % (30-34); Mean Corpuscular Volume 73 fl (79-97); Platelet Count 149 K/mm3 (140-440); Red Blood Count 4.28 M/mm3 (3.65-5.03)
[2019-03-17 06:11] LABS: Red Cell Distribution Width 20.2 % (13.2-15.2)
[2019-03-17 06:23] LABS: BUN/Creatinine Ratio 12; Blood Urea Nitrogen 7 mg/dL (7-17); Calcium 8.5 mg/dL (8.4-10.2); Hemolysis Index 1
[2019-03-17] MEDS: DUONEB *Not for PRN Use IH SCH ×2 (07:43→13:58)
[2019-03-17] MEDS: DILAUDID IV PRN (07:46)
[2019-03-17] MEDS: PEPCID PO SCH (09:46)
[2019-03-17] MEDS: ROCEPHIN/NS 2 GM/100 ML 2 GM/100 ML BAG IV SCH (09:47)
[2019-03-17] MEDS: RIFADIN PO SCH (09:47)
[2019-03-17] MEDS: PERCOCET 5/325 PO PRN (09:56)
--- NOTE | 2019-03-17 12:23 | Discharge Summary ---
Providers - Providers Date of Admission: 03/14/19 13:58 Date of discharge: 03/17/19 Attending physician: AUBREY KNOWLES 03/14/19 14:42 Consult to Physician [CONS] Routine Comment: Consulting Provider: LENIN ARVIZU Physician Instructions: Reason For Exam: nephrolithiasis 03/15/19 06:59 Consult to Physician [CONS] Routine Comment: Consulting Provider: PATRICK MORA Physician Instructions: Reason For Exam: Staghorn calculus Primary care physician: MUMTAZ ROCHA Hospitalization Procedures: rt percutaneous nephrolithotomy (stent, perc tube, safety wire) Hospital course: pt had procedure pain after surgery requiring more inpt obs home today with perc tube pt has scripts Disposition: DC-01 TO HOME OR SELFCARE Core Measure Documentation - Palliative Care Palliative Care/ Comfort Measures: Not Applicable - Core Measures Any of the following diagnoses?: none - VTE Discharge Requirements Deep Vein Thrombosis/Pulmonary Embolism Present on Admission: No Has pt received <5 days of overlap therapy or INR<2.0: No Contraindication No Overlap Therapy order at DC: Medical Contraindication - Acute MA Discharge Requirements Aspirin at discharge: No Reason for no aspirin on DC: Surgical contraindication ADRIANO/ARB for LVSD if EF <40%: Not Applicable Reason for no ADRIANO/ARB: Medical contraindication Beta kory at discharge: No Reason for no beta kory on DC: Medical contraindication Statin for LDL = or >100 mg/dl on DC: Not Applicable Reason for no statin on DC: Surgical contraindication - Heart Failure Discharge Requirements ADRIANO/ARB for LVSD if EF <40%: Not Applicable Reason for no ADRIANO/ARB: Medical contraindication Beta kory at discharge: No Reason for no beta kory on DC: Medical contraindication - Stroke Discharge Requirements Statin for LDL = or >70 mg/dl on DC: Not Applicable Reason for no statin on DC: Medical Contraindication Anticoag for atrial fib/atrial flutter: Not Applicable Reason for no anticoag for AF/F on DC: Medical Contraindication Reason for no antithrombotic on DC: Medical Contraindication Exam - Constitutional Vitals: Temp Pulse Resp BP Pulse Ox 97.9 F 89 18 139/68 94 03/17/19 07:46 03/17/19 07:46 03/17/19 07:46 03/17/19 07:46 03/17/19 07:46 General appearance: Present: no acute distress, well-nourished - EENT Eyes: Present: PERRL ENT: hearing intact, clear oral mucosa - Neck Neck: Present: supple, normal ROM - Respiratory Respiratory effort: normal Respiratory: bilateral: CTA - Cardiovascular Heart Sounds: Present: S1 & S2. Absent: rub, click - Extremities Extremities: pulses symmetrical, No edema Peripheral Pulses: within normal limits - Abdominal General gastrointestinal: Present: soft, non-tender, non-distended, normal bowel sounds Female genitourinary: Present: normal - Integumentary Integumentary: Present: clear, warm, dry - Musculoskeletal Musculoskeletal: gait normal, strength equal bilaterally - Psychiatric Psychiatric: appropriate mood/affect, intact judgment & insight - Neurologic Neurologic: CNII-XII intact, moves all extremities Plan Activity: no restrictions, other (no lifting greater than 10 lbs) Diet: regular Wound: open to air, keep clean and dry, other (ok to shower, no baths) Follow up with: MUMTAZ ROCHA MD [Primary Care Provider] - 7 Days
[2019-03-17 12:49] VITALS: BP 154/84
--- NOTE | 2019-03-17 14:41 | Progress Note ---
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 Patient has large staghorn calculus and going for lithotripsy today. Patient status post right nephroureteral stent placement. Lithotripsy done, Management per urology. It appears she will need staging procedure. Patient mentioned that Nephrectomy maybe an option per her conversation with Dr. Gandhi over the phone. Date of procedure: 03/15/19 Pre-op diagnosis: staghorn stone - right Post-op diagnosis: same Findings: rt percutaneous nephrolithotom (stent, perc tube, safety wire) Anesthesia: GETA Surgeon: PATRICK GANDHI Estimated blood loss: 50-100ml Right staghorn calculus: Urology is following, for lithotripsy 02/12/19. Linda in [address] Status post right nephroureteral stent placement. Acute blood loss anemia: HCT unchanged but hgb dropped, so steady Suspected Acute hypoxic respiratory failure: 94% on 3liters, 91% RA at rest, stopped NS, restart diet, add Incentive spirometry and nebulizer treatment DVT prophylaxis SCD only due to drop in Hgb Disposition: continue inpatient care, Anticipate Discharge once Cleared by Urology History Interval history: Patient was seen and examined. Follow-up on current diagnosis of Right Nephrol ithiasis. Overnight uneventful. Patient denies any chest pain, shortness breath, nausea/vomiting or severe headaches. Imaging, nursing note, chart, labs and old chart reviewed. Discussed with patient. Hospitalist Physical - Physical exam Narrative exam: Gen: WDWN, NAD, Awake, Alert, Orientated HEENT: NCAT, EOMI, PERRL, OP Clear Neck: supple, no adenopathy, no thyromegaly, no JVD CVS/Heart: RRR, normal S1S2, pulses present bilaterally Chest/Lungs: CTA B, Symmetrical chest expansion, good air entry bilaterally GI/Abdomen: soft, NTND, good bowel sounds, no guarding or rebound /Bladder: no suprapubic tenderness, + right CVA, no paraspinal tenderness Extermity/Skin: no c/c/e, no obvious rash MSK: FROM x 4 Neuro: CN 2-12 grossly intact, no new focal deficits Psych: calm - Constitutional Vitals: Temp Pulse Resp BP Pulse Ox 98.3 F 108 H 18 154/84 92 03/17/19 12:17 03/17/19 14:06 03/17/19 14:06 03/17/19 12:17 03/17/19 12:17 General appearance: Present: no acute distress, well-nourished Results - Labs CBC & Chem 7: 03/17/19 05:42 03/17/19 05:42 Labs: Laboratory Last Values WBC 6.3 K/mm3 (4.5-11.0) 03/17/19 05:42 RBC 4.28 M/mm3 (3.65-5.03) 03/17/19 05:42 Hgb 10.3 gm/dl (10.1-14.3) 03/17/19 05:42 Hct 31.3 % (30.3-42.9) 03/17/19 05:42 MCV 73 fl (79-97) L 03/17/19 05:42 MCH 24 pg (28-32) L 03/17/19 05:42 MCHC 33 % (30-34) 03/17/19 05:42 RDW 20.2 % (13.2-15.2) H 03/17/19 05:42 Plt Count 149 K/mm3 (140-440) 03/17/19 05:42 Lymph % (Auto) 5.4 % (13.4-35.0) L 03/16/19 04:39 [place] % (Auto) 5.4 % (0.0-7.3) 03/16/19 04:39 Eos % (Auto) 0.4 % (0.0-4.3) 03/16/19 04:39 Baso % (Auto) 0.3 % (0.0-1.8) 03/16/19 04:39 Lymph # 0.5 K/mm3 (1.2-5.4) L 03/16/19 04:39 [place] # 0.5 K/mm3 (0.0-0.8) 03/16/19 04:39 Eos # 0.0 K/mm3 (0.0-0.4) 03/16/19 04:39 Baso # 0.0 K/mm3 (0.0-0.1) 03/16/19 04:39 Seg Neutrophils % 88.5 % (40.0-70.0) H 03/16/19 04:39 Seg Neutrophils # 7.7 K/mm3 (1.8-7.7) 03/16/19 04:39 PT 12.7 Sec. (12.2-14.9) 03/14/19 07:45 INR 0.90 (0.87-1.13) 03/14/19 07:45 APTT 25.5 Sec. (24.2-36.6) 03/14/19 07:45 Sodium 139 mmol/L (137-145) 03/17/19 05:42 Potassium 4.1 mmol/L (3.6-5.0) 03/17/19 05:42 Chloride 104.5 mmol/L (98-107) 03/17/19 05:42 Carbon Dioxide 22 mmol/L (22-30) 03/17/19 05:42 17 mmol/L 03/17/19 05:42 BUN 7 mg/dL (7-17) 03/17/19 05:42 0.6 mg/dL (0.7-1.2) L 03/17/19 05:42 Estimated GFR > 60 ml/min 03/17/19 05:42 12 % 03/17/19 05:42 Glucose 100 mg/dL (65-100) 03/17/19 05:42 Calcium 8.5 mg/dL (8.4-10.2) 03/17/19 05:42 < 0.20 mg/dL (0.1-1.2) 03/14/19 14:58 AST 6 units/L (5-40) 03/14/19 14:58 ALT 12 units/L (7-56) 03/14/19 14:58 53 units/L (35-129) 03/14/19 14:58 6.5 g/dL (6.3-8.2) 03/14/19 14:58 3.7 g/dL (3.9-5) L 03/14/19 14:58 1.3 % 03/14/19 14:58 Blood Type A NEGATIVE 03/15/19 17:25 Antibody Screen TNR 03/15/19 17:25 DARI Antibody Screen Negative 03/15/19 17:25 Crossmatch See Detail 03/15/19 17:25 Active Medications - Current Medications Current Medications: Generic Name Dose Route Start Last Admin Trade Name Freq PRN Reason Stop Dose Admin Acetaminophen 650 mg 03/14/19 14:42 Tylenol PO Q4H PRN Pain MILD(1-3)/Fever >100.5/REAGAN Acetaminophen/Hydrocodone Bitart 2 each 03/14/19 14:42 03/16/19 03:37 [place] 5/325 PO 2 each Q6H PRN Administration Pain, Moderate (4-6) Albuterol 2.5 mg 03/16/19 09:10 Proventil IH Q4HRT PRN Shortness Of Breath Albuterol/Ipratropium 1 ampul 03/16/19 14:00 03/17/19 13:58 Duoneb *Not For Prn Use* IH 1 ampul TIDRT WALT Administration Bisacodyl 10 mg 03/14/19 14:42 Dulcolax [place] QDAY PRN Constipation unrelieved by MOM Famotidine 20 mg 03/14/19 15:00 03/17/19 09:46 Pepcid PO 20 mg BID WALT Administration Hydromorphone HCl 0.5 mg 03/14/19 14:42 03/17/19 07:46 Dilaudid IV 0.5 mg Q3H PRN Administration Pain , Severe (7-10) Ceftriaxone Sodium 2 gm in 100 mls @ 200 mls/hr 03/14/19 21:00 03/17/19 09:47 Rocephin/Ns 2 Gm/100 Ml IV 200 mls/hr Q24HR WALT Administration Protocol Ondansetron HCl 4 mg 03/14/19 14:42 03/14/19 18:58 Zofran IV 4 mg Q8H PRN Administration Nausea And Vomiting Oxycodone/Acetaminophen 1 tab 03/14/19 14:42 03/17/19 09:56 Percocet 5/325 PO 1 tab Q6H PRN Administration Pain, Moderate (4-6) Rifampin 600 mg 03/15/19 12:00 03/17/19 09:47 Rifadin PO 600 mg DAILY WALT Administration Sodium Chloride 10 ml 03/14/19 22:00 03/16/19 21:09 Sodium Chloride Flush Syringe 10 Ml IV 10 ml BID WALT Administration Sodium Chloride 10 ml 03/14/19 14:42 Sodium Chloride Flush Syringe 10 Ml IV PRN PRN LINE FLUSH Zolpidem Tartrate 5 mg 03/14/19 22:00 03/14/19 22:23 Ambien PO 5 mg QHS PRN Administration Insomnia Nutrition/Malnutrition Assess - Dietary Evaluation Nutrition/Malnutrition Findings: Nutrition Notes Start: 03/15/19 16:39 Freq: Status: Active Protocol: Document 03/15/19 16:39 RM (Rec: 03/15/19 16:39 RM [id number]) Nutrition Notes Need for Assessment 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 Sriram 20 points. Nutrition Intervention Revisit per MD consult or patient Sign Off request:
--- NOTE | 2019-03-22 20:39 | Operative Report ---
PREOPERATIVE DIAGNOSIS: Right staghorn calculus. POSTOPERATIVE DIAGNOSIS: Right staghorn calculus. PROCEDURE: Right percutaneous nephrolithotomy. SURGEON: Darshan Gandhi MD ANESTHESIA: General. ESTIMATED BLOOD LOSS: Minimal. FLUIDS: Crystalloid. COMPLICATIONS: No complications. DESCRIPTION OF PROCEDURE: The patient was taken to the operative suite, placed in a supine position. After adequate general anesthesia, Linda catheter was placed. She was placed in the prone position. She had already had a nephrostomy tube access placed by Dr. Joshi the day before, midpole access. She was prepped and draped in the sterile fashion. With the aid of a C-arm fluoroscopy, the access catheter could be appreciated. A 0.035 Glidewire was advanced down into the bladder. Dilation catheter was used to dilate to 18-[place]ong[place]. A second wire was placed as a safety wire dilation to using the Amplatz dilation system to a 28-[place]. Safety wire was then secured to the skin with a 2-0 silk. The rigid nephroscope was placed as significant inflammation could be appreciated. The stone was identified in the midpole. Using a 500 micron fiber, holmium laser lithotripsy was performed. Fragmentation could be appreciated very quickly restarting to see some troublesome bleeding that made it difficult to see and appears to be lots of inflammation in this area. Continued to irrigate and laser the stones and removed some of the fragments due to the tedious bleeding felt that it was best to suspend the procedure. A 6-[place]ongan 26 cm double-J stent was then advanced down into the bladder. A 20-[place]ong[place] cahto tip catheter was advanced over the wire. A 5 mL contrast in the balloon, nephrostogram was obtained adequate position. The catheter was secured to the skin with 2-0 silk interrupted fashion. The patient was then extubated and taken to recovery room in stable condition. We will discuss with her possible open procedure to remove the stone pyelolithotomy versus nephrectomy due to the function of this kidney is a 30% functioning kidney. The other side, left kidney works well. Based on this inflammation, she may require multiple procedures to get her stone free, so trying to discuss at length with the patient next step. JOB# [id number] Jami/LUZ
== END 2019-03-17 16:20 | disposition home or self-care (01) | DRG 659 ==
LOC: CATHLABREC 07:30 → 3A 13:58 → EEVIPCON 13:58 → 3A 14:20 → 3B-SURG 03-15 17:25
PROVIDERS: ADMIT Internal Medicine; ATTEND Internal Medicine
PROC: 0T763DZ Dilation of Right Ureter with Intraluminal Device, Percutaneous Approach (ICD-10-PCS; 2019-03-14)
PROC: 0TC63ZZ Extirpation of Matter from Right Ureter, Percutaneous Approach (ICD-10-PCS; principal; 2019-03-15)
DX: N20.0 Calculus of kidney (principal); J96.01 Acute respiratory failure with hypoxia; D62 Acute posthemorrhagic anemia; F17.210 Nicotine dependence, cigarettes, uncomplicated
CPT/HCPCS: 36415; 50433; 74176; 80048; 80053; 85025; 85027; 85610; 85730; 86850; 86900; 86901; 86920; 94640; 96374; G0378; A4217; C1726; C1769; C2617; J0330; J0696; J1100; J1170; J1956; J2250; J2270; J2370; J2405; J2704; J3010; J7030; J7040; J7120; Q9967

== ENCOUNTER 2019-05-22 06:15 | Inpatient (IN) | payer BC ==
--- NOTE | 2019-05-18 12:18 | Anesthesia Consultation ---
Anesthesia Consult and Med Hx Date of service: 05/22/19 - Airway Anesthetic Teeth Evaluation: Poor, Chipped ROM Head & Neck: Adequate Mental/Hyoid Distance: Adequate Mallampati Class: Class II Intubation Access Assessment: Good - Pre-Operative Health Status ASA Pre-Surgery Classification: ASA2 Proposed Anesthetic Plan: General - Pulmonary Hx Smoking: Yes (CURRENT SMOKER) Hx Asthma: No Hx Respiratory Symptoms: No (+PPD) COPD: No Hx Pneumonia: No Hx Sleep Apnea: No (ANASTACIO PRE SCREEN LOW RISK.) - Cardiovascular System Hx Hypertension: No - Central Nervous System Hx Psychiatric Problems: No - Gastrointestinal Hx Gastroesophageal Reflux Disease: No - Endocrine Hx Renal Disease: Yes (Multiple kidney stones) Hx End Stage Renal Disease: No - Hematic Hx Anemia: No - Other Systems Hx Alcohol Use: Yes (BEER 1 OR 2 EACH NIGHT) Hx Substance Use: No Hx Cancer: No - Additional Comments Anesthesia Medical History Comments: 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 +PPD and on fourth and final month of rifampin. Pt states CXR in December was negative and denies respiratory symptoms
[2019-05-18 13:00] LABS: Basophils % (Auto) 0.8 % (0.0-1.8); Eosinophils # (Auto) 0.2 K/mm3 (0.0-0.4); Eosinophils % (Auto) 2.9 % (0.0-4.3); Hematocrit 34.7 % (30.3-42.9); Hemoglobin 11.1 gm/dl (10.1-14.3); Lymphocytes # (Auto) 1.2 K/mm3 (1.2-5.4); Mean Corpuscular HGB Conc 32 % (30-34); Mean Corpuscular Volume 72 fl (79-97); Monocytes # (Auto) 0.5 K/mm3 (0.0-0.8); Monocytes % (Auto) 7.8 % (0.0-7.3); Platelet Count 151 K/mm3 (140-440); Red Blood Count 4.83 M/mm3 (3.65-5.03)
[2019-05-18 13:12] LABS: Alanine Aminotransferase 12 units/L (7-56); Albumin 3.8 g/dL (3.9-5); BUN/Creatinine Ratio 20; Blood Urea Nitrogen 16 mg/dL (7-17); Calcium 9.1 mg/dL (8.4-10.2); Hemolysis Index 10
[2019-05-18 13:17] LABS: INR 0.94 (0.87-1.13); Partial Thromboplastin Time 23.7 Sec. (24.2-36.6)
[~2019-05-22 06:15] MED LIST: ANCEF/STERILE WATER 2 GM/20 ML IV NR; NACL 0.9% 500 ML 500 ML IV NR; NACL 0.9% 500 ML 500 ML IV ONE
[2019-05-22] MEDS ORDERED: NACL 0.9% 1000 ML 1,000 ML ONE ×2 (07:21→11:58)
[2019-05-22] MEDS: NACL 0.9% 1000 ML 1,000 ML IV SCH ×2 (07:25→15:24)
--- NOTE | 2019-05-22 07:34 | Anesthesia Day of Surgery ---
Anesthesia Day of Surgery - Day of Surgery Patient Examined: Yes Patient H&P Reviewed: Yes Patient is NPO: Yes
[2019-05-22] MEDS ORDERED: DILAUDID IV PRN (07:35)
[2019-05-22] MEDS ORDERED: ZOFRAN IV PRN ×2 (07:35→11:51)
[2019-05-22] MEDS ORDERED: DIPRIVAN 10 MG/ML IV ONE (07:40)
[2019-05-22] MEDS ORDERED: SUBLIMAZE ONE (07:40)
[2019-05-22] MEDS ORDERED: XYLOCAINE MPF 2% ONE (07:43)
[2019-05-22] MEDS ORDERED: ACD-A 500 ML IV ONE (07:51)
[2019-05-22] MEDS ORDERED: CALCIUM CHLORIDE IV ONE (07:51)
[2019-05-22] MEDS ORDERED: VERSED IV NR (08:00)
[2019-05-22] MEDS ORDERED: METHYLENE BLUE ONE (08:02)
[2019-05-22] MEDS ORDERED: ZEMURON IV ONE (09:22)
[2019-05-22] MEDS ORDERED: GELFOAM TP ONE (09:48)
[2019-05-22] MEDS ORDERED: OSMITROL 20% 500 ML ONE (10:24)
[2019-05-22] MEDS ORDERED: DILAUDID ONE (11:27)
--- NOTE | 2019-05-22 11:49 | Post Operative Note ---
Date of procedure: 05/22/19 Pre-op diagnosis: rt staghorn calculus Post-op diagnosis: same Procedure: rt pyelotomy (bleeding) rt nephrectomy Surgeon: PATRICK MORA Clerical Assistant: GLENDA LIZAMA Estimated blood loss: other (550cc) Pathology: list Specimen disposition: to lab Condition: stable Disposition: PACU
[2019-05-22] MEDS ORDERED: NARCAN 0.4 MG/1 ML IV PRN (11:51)
--- NOTE | 2019-05-22 12:29 | Operative Report ---
PREOPERATIVE DIAGNOSES: Right staghorn calculus, status post attempted percutaneous nephrolithotomy with double-J stent placement. POSTOPERATIVE DIAGNOSES: Right staghorn calculus, status post attempted percutaneous nephrolithotomy with double-J stent placement. PROCEDURE: Right pyelolithotomy with removal of stone and nephrectomy. SURGEON: Darshan Gandhi MD CAN WORKER: MD Maria Del Rsoario ANESTHESIA: General. ESTIMATED BLOOD LOSS: 550 mL. FLUIDS: Crystalloid, 250 mL Cell Saver, 2 units packed cells. INDICATIONS: This patient is a 53-year-old female seen in the office for right-sided kidney stone. She has been treated for lower back pain for some time. Eventually, they got a spine film and is found to have a kidney stone. We discussed options. She had a nuclear scan, there was 30% function on the right, 70% function on the left. We discussed observation, which is not a good option, percutaneous nephrolithotomy versus open nephrectomy and open pyelolithotomy and possible nephrectomy. Initially we gave a trial of percutaneous nephrolithotomy, nephrostomy tube was placed in a separate setting, percutaneous nephrolithotomy. Right in the beginning of the procedure, there was bleeding. The nephrostomy tube was placed in the mid kory. Blood vessels are large in that area and resultant bleeding and so therefore very little stone was removed percutaneously. A stent was placed. She recovered. We discussed options, which she presents now for open pyelolithotomy, possible nephrectomy. As I said, her right kidney with 30% function. Risks, benefits, and complications were explained to she and her . DESCRIPTION OF PROCEDURE: The patient was taken to the operative suite, placed in a supine position. After adequate general anesthesia, a Linda catheter was placed. She was placed in a flank position right side up, prepped and draped in a sterile fashion. Subcostal incision was made with a Bovie. Sharp dissection was taken down through the muscular layers. Lumbodorsal fascia was opened posteriorly, was able to reflect the peritoneum and stay extraperitoneal. There was a small rent in the peritoneum which was closed with 2-0 Vicryl in interrupted fashion. Bookwalter retractor was used for exposure. Dissection of the kidney with blunt and sharp dissection was used to expose the kidney. There was a fair amount of inflammation. They were branch renal artery and veins that were all controlled with vessel loop. The ureter was also controlled with a vessel loop as well. The upper and lower pole stones could be palpated posteriorly. At that point, mannitol was given. We clamped the renal vessels. As I said, a dam was created and ice slush placed in the wound. Two posterior nephrotomies were made along Bodell's line. The upper pole stone was extracted without difficulty. Minimal bleeding. A lower pole nephrotomy was made and again that the stone was removed without difficulty. The mid pole stone was difficult to palpate. She had a small intrarenal pelvis. We approached it posteriorly; however, it was difficult to palpate a nephrotomy and actually pyelotomy was made to expose the mid pole stone. It was removed in piecemeal and appeared to be all the fragments were out. However, at this point, there was some bleeding from the renal hilum. It was difficult to control. One of the bulldogs had lost a good position and therefore we felt prudent to proceed with nephrectomy. Silk tie was placed on both sets of the upper renal artery and lower renal artery and vein, bleeding stopped. The patient was stable throughout this part of the procedure. Renal vessels were tied, cut and the kidney was removed. Copious irrigation was performed. Adequate hemostasis achieved. Also, the ureter was clipped with large clips and removed. She was taken out of flex. Again blood pressure was stable. No active bleeding. A platelet membrane was placed in the area of the renal hilum, but again no active bleeding could be appreciated. A platelet spray was also throughout the wound. Transversalis fascia was closed with 0 Vicryl in a running fashion. Internal oblique fascia was closed with #1 looped PDS. External oblique was closed with #1 looped PDS. She tolerated the procedure well. Venetie were placed. Instrument count was correct. She was extubated and taken to recovery room in stable condition. JOB# [id number] [employer]
--- NOTE | 2019-05-22 13:23 | XRay Report ---
. CHEST 1 VIEW 05/22/2019 12:55 PM INDICATION / CLINICAL INFORMATION: Postoperative status. Status post right nephrectomy. COMPARISON: None available. FINDINGS: SUPPORT DEVICES: None. HEART / MEDIASTINUM: No significant abnormality. LUNGS / PLEURA: There is probable bibasilar atelectasis. The upper lungs are clear. No significant pl eural effusion. No pneumothorax. ADDITIONAL FINDINGS: No significant additional findings. IMPRESSION: Probable bibasilar atelectasis. Signer Name: Piero Cruz MD Signed: 05/22/2019 1:19 PM Workstation Name: [id number]
[2019-05-22] MEDS: MORPHINE IV PRN (14:09)
[2019-05-22 14:58] LABS: Basophils # (Auto) 0.1 K/mm3 (0.0-0.1); Basophils % (Auto) 0.6 % (0.0-1.8); Hematocrit 35.6 % (30.3-42.9); Hemoglobin 11.6 gm/dl (10.1-14.3); Lymphocytes # (Auto) 0.5 K/mm3 (1.2-5.4); Mean Corpuscular HGB Conc 33 % (30-34); Mean Corpuscular Volume 77 fl (79-97); Monocytes # (Auto) 0.5 K/mm3 (0.0-0.8); Monocytes % (Auto) 4.5 % (0.0-7.3); Platelet Count 136 K/mm3 (140-440); Red Blood Count 4.65 M/mm3 (3.65-5.03)
[2019-05-22 15:00] LABS: Red Cell Distribution Width 21.8 % (13.2-15.2)
[2019-05-22 15:18] LABS: BUN/Creatinine Ratio 18; Blood Urea Nitrogen 14 mg/dL (7-17); Calcium 7.8 mg/dL (8.4-10.2); Hemolysis Index 6
[2019-05-22] MEDS: ANCEF/NS 1 GM/50 ML 1 GM/50 ML BAG IV SCH ×2 (16:54→23:33)
[2019-05-23] MEDS: MORPHINE IV PRN ×2 (00:18→10:12)
[2019-05-23] MEDS: NACL 0.9% 1000 ML 1,000 ML IV SCH ×2 (03:02→16:09)
[2019-05-23 08:51] LABS: Basophils % (Auto) 0.4 % (0.0-1.8); Eosinophils % (Auto) 0.3 % (0.0-4.3); Hematocrit 33.7 % (30.3-42.9); Hemoglobin 10.8 gm/dl (10.1-14.3); Lymphocytes # (Auto) 0.6 K/mm3 (1.2-5.4); Lymphocytes % (Auto) 6.7 % (13.4-35.0); Mean Corpuscular HGB Conc 32 % (30-34); Mean Corpuscular Volume 76 fl (79-97); Monocytes # (Auto) 0.6 K/mm3 (0.0-0.8); Monocytes % (Auto) 7.3 % (0.0-7.3); Platelet Count 113 K/mm3 (140-440); Red Blood Count 4.45 M/mm3 (3.65-5.03)
[2019-05-23 09:04] LABS: Red Cell Distribution Width 21.5 % (13.2-15.2)
[2019-05-23 09:14] LABS: BUN/Creatinine Ratio 14; Blood Urea Nitrogen 10 mg/dL (7-17); Hemolysis Index 3
[2019-05-23] MEDS: RIFADIN PO SCH (10:01)
--- NOTE | 2019-05-23 13:04 | Event Note ---
Date: 05/23/19 pt with pain not moving well removed dressing ---looks good start diet may transfer in am
--- NOTE | 2019-05-23 20:18 | Progress Note ---
Subjective Date of service: 05/23/19 Objective - Constitutional Vitals: Vital Signs - 12hr 05/23/19 05/23/19 12:00 16:00 Temperature 98.7 F 99.1 F Pulse Rate [ 74 82 From Monitor] Pulse Rate [ 74 82 None] Respiratory 16 16 Rate Blood Pressure 121/62 133/63 O2 Sat by Pulse 98 94 Oximetry - Labs CBC & Chem 7: 05/23/19 08:39 05/23/19 08:39 Labs: Abnormal lab results 05/22/19 05/23/19 05/23/19 Range/Units 06:45 08:39 08:39 MCV 76 L (79-97) fl MCH 24 L (28-32) pg RDW 21.5 H (13.2-15.2) % Plt Count 113 L (140-440) K/mm3 Lymph % (Auto) 6.7 L (13.4-35.0) % Lymph # 0.6 L (1.2-5.4) K/mm3 Seg Neutrophils % 85.3 H (40.0-70.0) % Chloride 109.4 H (98-107) mmol/L Carbon Dioxide 20 L (22-30) mmol/L Glucose 118 H (65-100) mg/dL Calcium 8.0 L (8.4-10.2) mg/dL Crossmatch See Detail Medications & Allergies - Medications Allergies/Adverse Reactions: Allergies No Known Allergies Allergy (Verified 05/16/19 08:54) Home Medications: Home Medications Medication Instructions Recorded Confirmed Last Taken Type Ibuprofen [Motrin 800 MG tab] 800 mg PO Q8H PRN #30 tablet 02/02/16 05/22/19 05/15/19 09:00 Rx rifAMPin [Rifadin] 2 cap PO DAILY 03/14/19 05/22/19 05/22/19 05:00 History Active Medications: Generic Name Dose Route Start Last Admin Trade Name Freq PRN Reason Stop Dose Admin Sodium Chloride 1,000 mls @ 75 mls/hr 05/22/19 07:00 05/23/19 16:09 Nacl 0.9% 1000 Ml IV 75 mls/hr DIRECT WALT Administration Sodium Chloride 1,000 mls @ 125 mls/hr 05/22/19 12:00 Nacl 0.45% 1000 Ml IV DIRECT WALT Morphine Sulfate 4 mg 05/22/19 11:51 05/23/19 10:12 Morphine IV 4 mg Q4H PRN Administration Pain , Severe (7-10) Naloxone HCl 0.1 mg 05/22/19 11:51 Narcan 0.4 Mg/1 Ml IV Q2MIN PRN Res Rate </= 8 or 02 SAT < 92% Ondansetron HCl 4 mg 05/22/19 11:51 Zofran IV Q8H PRN N/V unrelieved by Leonel Oxycodone/Acetaminophen 1 tab 05/22/19 11:51 Percocet 5/325 PO Q6H PRN Pain, Moderate (4-6) Rifampin 300 mg 05/23/19 10:00 05/23/19 10:01 Rifadin PO 300 mg DAILY WALT Administration
[2019-05-23] MEDS: PERCOCET 5/325 PO PRN (20:37)
[2019-05-24] MEDS ORDERED: BENADRYL PO ONE (00:16)
[2019-05-24] MEDS: MORPHINE IV PRN ×2 (08:40→17:12)
[2019-05-24] MEDS: PERCOCET 5/325 PO PRN ×2 (08:58→23:15)
[2019-05-24] MEDS: RIFADIN PO SCH (10:56)
[2019-05-24] MEDS: NACL 0.45% 1000 ML 1,000 ML IV SCH (17:13)
--- NOTE | 2019-05-24 19:10 | Progress Note ---
Subjective Date of service: 05/24/19 Interval history: rt pyelotomy (bleeding) --- [place] 05-22-19 rt nephrectomy family at the bedside tolerating well abd soft farnsworth clear A/P stable dc farnsworth transfer to floor home soon Objective - Constitutional Vitals: Vital Signs - 12hr 05/24/19 05/24/19 05/24/19 07:11 07:21 07:31 Temperature Pulse Rate 91 H 92 H 91 H Pulse Rate [ From Monitor] Respiratory 26 H 26 H 26 H Rate Blood Pressure 143/73 143/73 163/83 O2 Sat by Pulse 92 93 94 Oximetry 05/24/19 05/24/19 05/24/19 07:41 07:51 08:00 Temperature 97.8 F Pulse Rate 89 89 90 Pulse Rate [ 88 From Monitor] Respiratory 30 H 28 H 31 H Rate Blood Pressure 163/83 163/83 O2 Sat by Pulse 94 94 93 Oximetry 05/24/19 05/24/19 05/24/19 08:01 08:11 08:21 Temperature Pulse Rate 88 93 H 87 Pulse Rate [ From Monitor] Respiratory 31 H 28 H 24 Rate Blood Pressure 175/88 175/88 175/88 O2 Sat by Pulse 93 94 95 Oximetry 05/24/19 05/24/19 05/24/19 08:31 08:41 08:51 Temperature Pulse Rate 89 92 H 90 Pulse Rate [ From Monitor] Respiratory 32 H 21 23 Rate Blood Pressure 155/93 155/93 155/93 O2 Sat by Pulse 93 96 96 Oximetry 05/24/19 05/24/19 05/24/19 09:01 09:11 09:21 Temperature Pulse Rate 91 H 88 89 Pulse Rate [ From Monitor] Respiratory 18 26 H 24 Rate Blood Pressure 138/74 138/74 138/74 O2 Sat by Pulse 96 96 96 Oximetry 05/24/19 05/24/19 05/24/19 09:31 09:41 09:51 Temperature Pulse Rate 89 92 H 89 Pulse Rate [ From Monitor] Respiratory 24 20 23 Rate Blood Pressure 140/73 140/73 140/73 O2 Sat by Pulse 94 95 94 Oximetry 05/24/19 05/24/19 05/24/19 10:01 10:11 10:21 Temperature Pulse Rate 89 91 H 89 Pulse Rate [ From Monitor] Respiratory 23 23 24 Rate Blood Pressure 142/73 142/73 142/73 O2 Sat by Pulse 94 96 95 Oximetry 05/24/19 05/24/19 05/24/19 10:31 10:41 10:51 Temperature Pulse Rate 85 89 87 Pulse Rate [ From Monitor] Respiratory 25 H 23 24 Rate Blood Pressure 151/71 151/71 151/71 O2 Sat by Pulse 93 94 94 Oximetry 05/24/19 05/24/19 05/24/19 11:01 11:11 11:21 Temperature Pulse Rate 90 87 94 H Pulse Rate [ From Monitor] Respiratory 22 22 25 H Rate Blood Pressure 144/70 144/70 144/70 O2 Sat by Pulse 92 94 93 Oximetry 05/24/19 05/24/19 05/24/19 11:31 11:41 11:51 Temperature Pulse Rate 90 86 84 Pulse Rate [ From Monitor] Respiratory 25 H 28 H 29 H Rate Blood Pressure 127/67 127/67 127/67 O2 Sat by Pulse 91 94 94 Oximetry 05/24/19 05/24/19 05/24/19 12:00 12:01 12:11 Temperature 97.9 F Pulse Rate 80 85 80 Pulse Rate [ 85 From Monitor] Respiratory 29 H 29 H 26 H Rate Blood Pressure 140/62 140/62 O2 Sat by Pulse 94 94 95 Oximetry 05/24/19 05/24/19 05/24/19 12:21 12:31 12:41 Temperature Pulse Rate 80 82 83 Pulse Rate [ From Monitor] Respiratory 26 H 29 H 22 Rate Blood Pressure 140/62 138/65 138/65 O2 Sat by Pulse 94 94 93 Oximetry 05/24/19 05/24/19 05/24/19 12:51 13:01 13:11 Temperature Pulse Rate 78 81 85 Pulse Rate [ From Monitor] Respiratory 31 H 26 H 22 Rate Blood Pressure 138/65 139/63 139/63 O2 Sat by Pulse 94 96 94 Oximetry 05/24/19 05/24/19 05/24/19 13:21 13:31 13:41 Temperature Pulse Rate 89 96 H 98 H Pulse Rate [ From Monitor] Respiratory 27 H 25 H 26 H Rate Blood Pressure 139/63 146/65 146/65 O2 Sat by Pulse 96 94 95 Oximetry 05/24/19 05/24/19 05/24/19 13:51 14:01 14:11 Temperature Pulse Rate 94 H 96 H 96 H Pulse Rate [ From Monitor] Respiratory 27 H 31 H 27 H Rate Blood Pressure 146/65 150/65 150/65 O2 Sat by Pulse 95 94 96 Oximetry 05/24/19 05/24/19 05/24/19 14:21 14:31 14:41 Temperature Pulse Rate 87 93 H 91 H Pulse Rate [ From Monitor] Respiratory 26 H 21 27 H Rate Blood Pressure 150/65 151/71 151/71 O2 Sat by Pulse 94 94 92 Oximetry 05/24/19 05/24/19 05/24/19 14:51 15:01 15:11 Temperature Pulse Rate 88 91 H 84 Pulse Rate [ From Monitor] Respiratory 26 H 25 H 28 H Rate Blood Pressure 151/71 149/81 149/81 O2 Sat by Pulse 92 93 93 Oximetry 05/24/19 05/24/19 05/24/19 15:21 15:31 15:41 Temperature Pulse Rate 88 85 79 Pulse Rate [ From Monitor] Respiratory 25 H 25 H 30 H Rate Blood Pressure 149/81 148/73 148/73 O2 Sat by Pulse 92 93 95 Oximetry 05/24/19 05/24/19 05/24/19 15:51 16:00 16:01 Temperature 98.3 F Pulse Rate 88 86 Pulse Rate [ From Monitor] Respiratory 21 32 H Rate Blood Pressure 148/73 158/74 O2 Sat by Pulse 94 93 Oximetry - Labs CBC & Chem 7: 05/23/19 08:39 05/23/19 08:39 Medications & Allergies - Medications Allergies/Adverse Reactions: Allergies No Known Allergies Allergy (Verified 05/16/19 08:54) Home Medications: Home Medications Medication Instructions Recorded Confirmed Last Taken Type Ibuprofen [Motrin 800 MG tab] 800 mg PO Q8H PRN #30 tablet 02/02/16 05/22/19 05/15/19 09:00 Rx rifAMPin [Rifadin] 2 cap PO DAILY 03/14/19 05/22/19 05/22/19 05:00 History Active Medications: Generic Name Dose Route Start Last Admin Trade Name Freq PRN Reason Stop Dose Admin Sodium Chloride 1,000 mls @ 125 mls/hr 05/22/19 12:00 05/24/19 17:13 Nacl 0.45% 1000 Ml IV 125 mls/hr DIRECT WALT Administration Morphine Sulfate 4 mg 05/22/19 11:51 05/24/19 17:12 Morphine IV 4 mg Q4H PRN Administration Pain , Severe (7-10) Naloxone HCl 0.1 mg 05/22/19 11:51 Narcan 0.4 Mg/1 Ml IV Q2MIN PRN Res Rate </= 8 or 02 SAT < 92% Ondansetron HCl 4 mg 05/22/19 11:51 Zofran IV Q8H PRN N/V unrelieved by Leonel Oxycodone/Acetaminophen 1 tab 05/22/19 11:51 05/24/19 08:58 Percocet 5/325 PO 1 tab Q6H PRN Administration Pain, Moderate (4-6) Rifampin 300 mg 05/23/19 10:00 05/24/19 10:56 Rifadin PO 300 mg DAILY WALT Administration
[2019-05-25] MEDS: PERCOCET 5/325 PO PRN ×2 (05:52→22:43)
[2019-05-25 06:45] LABS: Basophils % (Auto) 0.3 % (0.0-1.8); Eosinophils # (Auto) 0.1 K/mm3 (0.0-0.4); Eosinophils % (Auto) 1.9 % (0.0-4.3); Hematocrit 31.7 % (30.3-42.9); Hemoglobin 10.2 gm/dl (10.1-14.3); Lymphocytes # (Auto) 0.9 K/mm3 (1.2-5.4); Lymphocytes % (Auto) 14.5 % (13.4-35.0); Mean Corpuscular HGB Conc 32 % (30-34); Mean Corpuscular Volume 75 fl (79-97); Monocytes # (Auto) 0.5 K/mm3 (0.0-0.8); Monocytes % (Auto) 7.9 % (0.0-7.3); Platelet Count 129 K/mm3 (140-440); Red Blood Count 4.22 M/mm3 (3.65-5.03); Red Cell Distribution Width 21.9 % (13.2-15.2)
[2019-05-25 07:11] LABS: BUN/Creatinine Ratio 14; Blood Urea Nitrogen 10 mg/dL (7-17); Calcium 8.4 mg/dL (8.4-10.2); Hemolysis Index 0
[2019-05-25] MEDS: RIFADIN PO SCH (08:59)
--- NOTE | 2019-05-25 15:57 | Progress Note ---
Subjective Date of service: 05/25/19 Interval history: rt pyelotomy (bleeding) --- [place] 05-22-19 rt nephrectomy not eating well yet abd soft farnsworth out (voiding well) incision clean A/P stable home soon monitor diet home in am Objective - Constitutional Vitals: Vital Signs - 12hr 05/25/19 05/25/19 05/25/19 04:53 04:57 05:23 Temperature 99.2 F Pulse Rate 87 65 90 Respiratory 18 Rate Blood Pressure Blood Pressure 128/75 [Left] O2 Sat by Pulse 93 97 93 Oximetry 05/25/19 08:21 Temperature 98.5 F Pulse Rate 92 H Respiratory 18 Rate Blood Pressure 115/58 Blood Pressure [Left] O2 Sat by Pulse 94 Oximetry - Labs CBC & Chem 7: 05/25/19 05:36 05/25/19 05:36 Labs: Abnormal lab results 05/22/19 05/25/19 05/25/19 Range/Units 06:45 05:36 05:36 MCV 75 L (79-97) fl MCH 24 L (28-32) pg RDW 21.9 H (13.2-15.2) % Plt Count 129 L (140-440) K/mm3 [place] % (Auto) 7.9 H (0.0-7.3) % Lymph # 0.9 L (1.2-5.4) K/mm3 Seg Neutrophils % 75.4 H (40.0-70.0) % Chloride 108.2 H (98-107) mmol/L Carbon Dioxide 20 L (22-30) mmol/L Crossmatch See Detail Medications & Allergies - Medications Allergies/Adverse Reactions: Allergies No Known Allergies Allergy (Verified 05/16/19 08:54) Home Medications: Home Medications Medication Instructions Recorded Confirmed Last Taken Type Ibuprofen [Motrin 800 MG tab] 800 mg PO Q8H PRN #30 tablet 02/02/16 05/22/19 05/15/19 09:00 Rx rifAMPin [Rifadin] 2 cap PO DAILY 03/14/19 05/22/19 05/22/19 05:00 History Active Medications: Generic Name Dose Route Start Last Admin Trade Name Freq PRN Reason Stop Dose Admin Sodium Chloride 1,000 mls @ 125 mls/hr 05/22/19 12:00 05/24/19 17:13 Nacl 0.45% 1000 Ml IV 125 mls/hr DIRECT WALT Administration Morphine Sulfate 4 mg 05/22/19 11:51 05/24/19 17:12 Morphine IV 4 mg Q4H PRN Administration Pain , Severe (7-10) Naloxone HCl 0.1 mg 05/22/19 11:51 Narcan 0.4 Mg/1 Ml IV Q2MIN PRN Res Rate </= 8 or 02 SAT < 92% Ondansetron HCl 4 mg 05/22/19 11:51 Zofran IV Q8H PRN N/V unrelieved by Leonel Oxycodone/Acetaminophen 1 tab 05/22/19 11:51 05/25/19 05:52 Percocet 5/325 PO 1 tab Q6H PRN Administration Pain, Moderate (4-6) Rifampin 300 mg 05/23/19 10:00 05/25/19 08:59 Rifadin PO 300 mg DAILY WALT Administration
[2019-05-25] MEDS: NACL 0.45% 1000 ML 1,000 ML IV SCH (16:30)
[2019-05-26 09:15] VITALS: BP 112/51
[2019-05-26] MEDS: RIFADIN PO SCH (10:42)
[2019-05-26] MEDS: PERCOCET 5/325 PO PRN (10:42)
--- NOTE | 2019-05-26 12:04 | Discharge Summary ---
Providers - Providers Date of Admission: 05/22/19 11:51 Date of discharge: 05/26/19 Attending physician: PATRICK MORA Primary care physician: MUMTAZ ROCHA Hospitalization Procedures: rt pyelotomy (bleeding) --- [place] 05-22-19 rt nephrectomy Hospital course: unremarkable post course contiolled pain once ambulating well---advance diet & removed farnsworth home with Dilaudid Disposition: DC-01 TO HOME OR SELFCARE Core Measure Documentation - Palliative Care Palliative Care/ Comfort Measures: Not Applicable - Core Measures Any of the following diagnoses?: none - VTE Discharge Requirements Deep Vein Thrombosis/Pulmonary Embolism Present on Admission: No Has pt received <5 days of overlap therapy or INR<2.0: No Anticoagulant overlap therapy prescribed at discharge: No Contraindication No Overlap Therapy order at DC: Medical Contraindication - Acute CT Discharge Requirements Aspirin at discharge: No Reason for no aspirin on DC: Surgical contraindication ADRIANO/ARB for LVSD if EF <40%: Not Applicable Reason for no ADRIANO/ARB: Medical contraindication Beta kory at discharge: No Reason for no beta kory on DC: Medical contraindication Statin for LDL = or >100 mg/dl on DC: Not Applicable Reason for no statin on DC: Surgical contraindication - Heart Failure Discharge Requirements ADRIANO/ARB for LVSD if EF <40%: No Reason for no ADRIANO/ARB: Medical contraindication Beta kory at discharge: No Reason for no beta kory on DC: Medical contraindication - Stroke Discharge Requirements Statin for LDL = or >70 mg/dl on DC: Not Applicable Reason for no statin on DC: Medical Contraindication Anticoag for atrial fib/atrial flutter: Not Applicable Reason for no anticoag for AF/F on DC: Medical Contraindication Antithrombotic for ischemic stroke: No Reason for no antithrombotic on DC: Medical Contraindication Exam - Constitutional Vitals: Temp Pulse Resp BP Pulse Ox 98.2 F 83 18 112/51 93 05/26/19 08:29 05/26/19 08:29 05/26/19 08:29 05/26/19 08:29 05/26/19 08:29 Plan Follow up with: MUMTAZ ROCHA MD [Primary Care Provider] - 7 Days
== END 2019-05-26 13:15 | disposition home or self-care (01) | DRG 661 ==
LOC: OR 06:15 → IMCU 11:51 → 3B-SURG 05-24 16:47
PROVIDERS: ADMIT Urology; ATTEND Urology
PROC: 0TT00ZZ Resection of Right Kidney, Open Approach (ICD-10-PCS; principal; 2019-05-22)
PROC: 0TC Urinary System, Extirpation (ICD-10-PCS; 2019-05-22)
PROC: 0DQW0ZZ Repair Peritoneum, Open Approach (ICD-10-PCS; 2019-05-22)
PROC: 30233N1 Transfusion of Nonautologous Red Blood Cells into Peripheral Vein, Percutaneous Approach (ICD-10-PCS; 2019-05-22)
DX: N20.0 Calculus of kidney (principal); K66.8 Other specified disorders of peritoneum; I10 Essential (primary) hypertension; F17.210 Nicotine dependence, cigarettes, uncomplicated; Z90.49 Acquired absence of other specified parts of digestive tract; Z98.51 Tubal ligation status; Z82.49 Family history of ischemic heart disease and other diseases of the circulatory system; Z82.3 Family history of stroke; Z79.899 Other long term (current) drug therapy; Z87.442 Personal history of urinary calculi; Y93.89 Activity, other specified
CPT/HCPCS: 36415; 71045; 80048; 80053; 82365; 84703; 85025; 85610; 85730; 86850; 86900; 86901; 86920; 88307; G0378; A4649; J0690; J1170; J2150; J2250; J2270; J2704; J3010; J7030; P9016; Q9968